=== PATIENT | female | born 1975 | race Caucasian/White ===

== ENCOUNTER 2018-06-18 16:21 | Observation (INO) | payer MEDICAID ==
--- NOTE | 2018-06-18 16:42 | ER Document Report ---
ED Medical Screen (RME) - General Chief Complaint: Abdominal Pain Stated Complaint: ABDOMINAL PAIN Time Seen by Provider: 06/18/18 16:37 Mode of Arrival: Ambulatory Information source: Patient Notes: 42-year-old female presents to ED for complaint of abdominal pain since 1130 this morning. She states she had a very good bowel movement on Tuesday that she had a small bowel movement this morning. She states she had severe pain so she took some Maida-[place]. She states that it called her friend letter who is a nurse and they told her to take the chewable Maida-[place] and a laxative so she did this. She states she has vomited x1 and she is still having severe abdominal pain. Bowel sounds are hypoactive but present abdomen is soft but distended. She states she has had a history of and and she is now in a lesbian relationship. She stated that a doctor did an exam on her previously I told her that she had a hernia in her umbilicus but she has never had it taken care of. I have greeted and performed a rapid initial assessment of this patient. A comprehensive ED assessment and evaluation of the patient, analysis of test results and completion of medical decision making process will be conducted by an additional ED providers. TRAVEL OUTSIDE OF THE [place] IN LAST 30 DAYS: No - Related Data Allergies/Adverse Reactions: pseudoephedrine [From Sudafed] Allergy (Verified 06/18/18 16:23)
[2018-06-18 17:18] LABS: ABSOLUTE EOSINOPHILS # (AUTO) 0.1 10^3/uL (0.0-0.6); ABSOLUTE LYMPHOCYTES (AUTO) 1.5 10^3/uL (0.5-4.7); ABSOLUTE MONOCYTES (AUTO) 0.5 10^3/uL (0.1-1.4); ABSOLUTE NEUT (AUTO) 7.4 10^3/uL (1.7-8.2); BASOPHILS % (AUTO) 0.2 % (0-2); EOSINOPHILS % (AUTO) 0.9 % (0-6); HEMATOCRIT 40.2 % (36.0-47.0); HEMOGLOBIN 13.9 g/dL (12.0-15.5); LYMPHOCYTES % (AUTO) 15.3 % (13-45); MEAN CORPUSCULAR HEMOGLOBIN 30.6 pg (27.0-33.4); MEAN CORPUSCULAR HGB CONC 34.5 g/dL (32.0-36.0); MEAN CORPUSCULAR VOLUME 89 fl (80-97); MONOCYTES % (AUTO) 5.6 % (3-13); PLATELET COUNT 206 10^3/uL (150-450); RED BLOOD COUNT 4.52 10^6/uL (3.72-5.28); TOTAL CELLS COUNTED % (AUTO) 100 %; WHITE BLOOD COUNT 9.6 10^3/uL (4.0-10.5)
[2018-06-18 17:38] LABS: ALANINE AMINOTRANSFERASE 20 U/L (9-52); ALBUMIN 4.4 g/dL (3.5-5.0); ALKALINE PHOSPHATASE 71 U/L (38-126); ANION GAP 12 (5-19); ASPARTATE AMINO TRANSFERASE 17 U/L (14-36); BILIRUBIN,DIRECT 0.2 mg/dL (0.0-0.4); BILIRUBIN,TOTAL 0.4 mg/dL (0.2-1.3); BLOOD UREA NITROGEN 12 mg/dL (7-20); CALCIUM 10.2 mg/dL (8.4-10.2); CARBON DIOXIDE 25 mmol/L (22-30); CHLORIDE 104 mmol/L (98-107); GLUCOSE 99 mg/dL (75-110); LIPASE 103.1 U/L (23-300); POTASSIUM 4.1 mmol/L (3.6-5.0); SODIUM 141.3 mmol/L (137-145); TOTAL PROTEIN 7.5 g/dL (6.3-8.2)
[2018-06-18 17:42] LABS: AMORPHOUS SEDIMENT,URINE TRACE /HPF; APPEARANCE,URINE CLOUDY; BILIRUBIN,URINE NEGATIVE (NEGATIVE); COLOR,URINE YELLOW; GLUCOSE, URINE NEGATIVE (NEGATIVE); KETONES,URINE NEGATIVE (NEGATIVE); LEUKOCYTE ESTERASE,URINE NEGATIVE (NEGATIVE); NITRITE,URINE NEGATIVE (NEGATIVE); PROTEIN,URINE NEGATIVE (NEGATIVE); URINE SPECIFIC GRAVITY 1.014; UROBILINOGEN,URINE NEGATIVE mg/dL (<2.0)
--- NOTE | 2018-06-18 18:15 | RADIOLOGY REPORT (SQ) ---
EXAM DESCRIPTION: ACUTE ABDOMEN SERIES COMPLETED DATE/TIME: 06/18/2018 5:54 pm REASON FOR STUDY: Abdominal pain bloating COMPARISON: None. NUMBER OF VIEWS: Three views. TECHNIQUE: Frontal chest, supine abdomen and upright/decubitus abdomen radiographic images acquired. LIMITATIONS: None. FINDINGS: CHEST: Lungs clear of infiltrates. FREE AIR: None. No abnormal gas collections. BOWEL GAS PATTERN: Nonobstructive pattern. No dilated loops or air fluid levels. Large burden of sto ol in the left and right colon. CALCIFICATIONS: No suspicious calcifications. HARDWARE: None in the abdomen. SOFT TISSUES: No gross mass or suggestion of organomegaly. BONES: S-shaped scoliosis of the thoracolumbar spine. OTHER: No other significant finding. IMPRESSION: 1. No acute abnormality of the lungs. 2. Nonobstructive pattern of bowel gas with gas and stool present to the rectum. No free air in the abdomen. Large burden of stool in the left and right colon. TECHNICAL DOCUMENTATION: JOB ID: [id number] [employer]- All Rights Reserved Reading location - IP/workstation name: [email or web address]
[2018-06-18] MEDS ORDERED: KETOROLAC TROMETHAMINE INJ/PF 30 MG/1 ML SDV IV ONE (19:22)
[2018-06-18] MEDS ORDERED: ONDANSETRON HCL INJ/PF 4 MG/2 ML SDV IV ONE (19:22)
--- NOTE | 2018-06-18 19:36 | ER Document Report ---
ED General <CR CARDENAS - Last Filed: 06/18/18 23:10> - General Mode of Arrival: Ambulatory TRAVEL OUTSIDE OF THE [place] IN LAST 30 DAYS: No <SANDHYA ALLAN - Last Filed: 06/23/18 20:23> - General Chief Complaint: Abdominal Pain Stated Complaint: ABDOMINAL PAIN Time Seen by Provider: 06/18/18 16:37 Notes: 42-year-old female presents to ED for complaint of abdominal pain since 1130 this morning. She states she had a very good bowel movement on Tuesday that she had a small bowel movement this morning. Her pain was so severe that she took some Maida-[place]. She vomited one time at home and vomited while in the waiting room. Her pain is persistent and severe that waxes to a 5 and wanes to a 3. Her bowel sounds are hypoactive but present. Has history of x2. She has a previous history of an umbilical hernia that a doctor told her was found on a previous exam. She denies any fevers, chills complains of nausea complains of vomiting complains of severe abdominal pain that is sharp and stabbing, denies shortness of breath or chest pain, denies diarrhea, denies urinary symptoms, no other complaints. (SANDHYA ALLAN) - Related Data Allergies/Adverse Reactions: pseudoephedrine [From Sudafed] Allergy (Verified 06/18/18 16:23) Past Medical History - General Information source: Patient - Social History Smoking Status: Never Smoker Frequency of alcohol use: None Drug Abuse: None Family History: None Patient has suicidal ideation: No Patient has homicidal ideation: No Renal/ Medical History: Denies: Hx Peritoneal Dialysis Past Surgical History: Reports: Hx Gynecologic Surgery - x'2 <SANDHYA ALLAN - Last Filed: 06/23/18 20:23> Review of Systems - Review of Systems Constitutional: See HPI EENT: No symptoms reported Cardiovascular: See HPI Respiratory: See HPI Gastrointestinal: See HPI Genitourinary: See HPI Female Genitourinary: No symptoms reported Musculoskeletal: No symptoms reported Skin: No symptoms reported Hematologic/Lymphatic: No symptoms reported Neurological/Psychological: No symptoms reported <SANDHYA ALLAN - Last Filed: 06/23/18 20:23> Physical Exam <SANDHYA ALLAN - Last Filed: 06/23/18 20:23> - Vital signs Vitals: Temp Pulse Resp BP Pulse Ox 97.7 F 69 18 117/69 100 06/18/18 19:00 06/18/18 19:00 06/18/18 19:00 06/18/18 19:00 06/18/18 19:00 - Notes Notes: PHYSICAL EXAMINATION: Reviewed vital signs and charting by RN GENERAL: Alert, interacts well. In acute distress. HEAD: Normocephalic, atraumatic. EYES: Pupils equal and round. Extraocular movements intact. ENT: Oral mucosa moist, tongue midline. NECK: Full range of motion. Supple. Trachea midline. LUNGS: Clear to auscultation bilaterally, no wheezes, rales, or rhonchi. No respiratory distress. HEART: Regular rate and rhythm. No murmur ABDOMEN: Unable to get a good exam due to patient's pain level. Abdomen is soft but very distended. Acute tenderness to light palpation in all montesinos. EXTREMITIES: Moves all 4 extremities spontaneously. No edema, No cyanosis. Normal distal neurovascular exam BACK: No CVAT NEUROLOGIC: Oriented and appropriate. Normal speech. PSYCH: Normal affect, normal mood. SKIN: Warm, dry, normal turgor. No rashes or lesions noted. (SANDHYA ALLAN) Course - Laboratory Result Diagrams: 06/18/18 16:42 06/18/18 16:42 <CR CARDENAS - Last Filed: 06/18/18 23:10> - Laboratory Result Diagrams: 06/19/18 05:47 06/19/18 05:47 <SANDHYA ALLAN - Last Filed: 06/23/18 20:23> - Re-evaluation Re-evalutation: Patient nauseated again, provided with Phenergan, this did help. She is able to get most of the contrast down and had a CAT scan. CAT scan showing small bowel obstruction with transition point in the mid abdomen. Patient given nebulized lidocaine, 2 mg IV Versed to help her tolerate NG tube placement. 06/18/18 23:13 Called and spoke with Dr. Palencia, general surgery, patient accepted for admission for small bowel obstruction. (CR CARDENAS) 06/18/18 19:33 Initial work-up was complete and an acute abdominal series did not show any air- fluid levels or free air present. It did show a moderate to severe stool burden with stool in the rectal vault. My initial suspicion is constipation but she is in acute distress and I am unable to get a good abdominal exam on her. Because of her history of an umbilical hernia I cannot exclude an incarceration or strangulation so my plan is to get a CT abdomen pelvis with oral and IV contrast because her BMI is 24.6. I have ordered some Zofran, IV fluids, saline lock, and fentanyl for pain control. 06/18/18 19:39 (SANDHYA ALLAN) - Vital Signs Vital signs: Temp Pulse Resp BP Pulse Ox 98.8 F 67 16 120/77 99 06/19/18 20:08 06/19/18 20:08 06/19/18 20:08 06/19/18 20:08 06/19/18 20:08 Discharge - Discharge Admitting Provider: Surgicalist Unit Admitted: Surgical Floor <CR CARDENAS - Last Filed: 06/18/18 23:10> <SANDHYA ALLAN - Last Filed: 06/23/18 20:23> - Discharge Clinical Impression: Small bowel obstruction Vomiting Qualifiers: Vomiting type: unspecified Vomiting Intractability: intractable Nausea presence: with nausea Qualified Code(s): R11.2 - Nausea with vomiting, unspecified Abdominal pain Qualifiers: Abdominal location: generalized Qualified Code(s): R10.84 - Generalized abdominal pain Condition: Stable Disposition: ADMITTED INPATIENT
[2018-06-18] MEDS ORDERED: FENTANYL CITRATE INJ/PF 100 MCG/2 ML AMPUL IV ONE (19:39)
[2018-06-18] MEDS ORDERED: NORMAL SALINE 1000 ML 1,000 ML IV ONE (19:40)
[2018-06-18] MEDS ORDERED: PROMETHAZINE HCL INJ 25 MG/1 ML VIAL IM ONE (21:09)
--- NOTE | 2018-06-18 22:30 | RADIOLOGY REPORT (SQ) ---
EXAM DESCRIPTION: CT ABDOMEN PELVIS WITH IV CONTRAST COMPLETED DATE/TME: 06/18/2018 00:00 CLINICAL HISTORY: 42 years, Female, acute abd pain h/o umbilical hernia COMPARISON: None. TECHNIQUE: Contrast enhanced CT of the abdomen/pelvis was performed. Coronal and sagittal reformations were created. Images stored on PACS. All CT scanners at this facility use dose modulation, iterative reconstruction, and/or weight based dosing when appropriate to reduce radiation dose to as low as reasonably achievable (ALARA). [facility]: Dose Right [facility]: CareDose [facility]: Dose Right [facility]: Teradose 4D [facility]: [employer] LIMITATIONS: None. FINDINGS: Limited evaluation of the lower chest reveals clear lung bases. Evaluation of the liver parenchyma reveals a hyperenhancing lesion located within the periphery of the right hepatic lobe on image 16 of series 3 measuring 0.7 x 0.6 cm in size. Liver otherwise enhances normally. The spleen, pancreas, gallbladder, and both adrenal glands appear normal. A simple cyst emanates from the lower pole of the left kidney. Both kidneys otherwise enhance symmetrically. There is no hydronephrosis or hydroureter. The urinary bladder is well distended and shows no suspicious finding. Uterus and both ovaries show no suspicious abnormality. A segment of small bowel appears dilated and fluid-filled about the lower midabdomen. A transition point is identified on image 45 of series 3 is slightly to the right of midline. Otherwise, the remainder of the small and large bowel appear normal in caliber. Vascular structures opacify with contrast normally. No suspicious lymphadenopathy is appreciated. No drainable fluid collections. There is a focal fluid density lesion located about the leftward aspect of the labia majora on image 84 of series 3 measuring 1.5 x 1.6 cm in size, corresponding to a Bartholin's gland cyst. Bone windows show no destructive osseous lesions. IMPRESSION: Findings compatible small bowel obstruction with transition point located about the lower midabdomen. Subcentimeter hyperenhancing lesion located within the periphery of the right hepatic lobe. In the absence of known primary malignancy or underlying chronic liver disease, this most likely represents a flash filling hemangioma. This could be confirmed with multiphasic CT of the abdomen. TECHNICAL DOCUMENTATION: Quality ID # 436: Final reports with documentation of one or more dose reduction techniques (e.g., Automated exposure control, adjustment of the mA and/or kV according to patient size, use of iterative reconstruction technique) copyright 2011 [employer]- All Rights Reserved
[2018-06-18] MEDS ORDERED: LIDOCAINE 1% INJ-PF (10 MG/ML) 30 ML SDV NEB ONE (22:58)
[2018-06-18] MEDS ORDERED: MIDAZOLAM 2 MG/2 ML INJ IV ONE (22:59)
--- NOTE | 2018-06-18 23:42 | PDOC H&P ---
History of Present Illness Admission Date/PCP: 06/18/18 Patient complains of: abdominal pains History of Present Illness: TERI SANCHEZ is a 42 year old female with hx of 2 CS suddenly c/o abdominal pains at 11:30 this am. Tried taking Alkaseltzer and gas x without relief. She vomited after taking rhese meds. Last good BM was 2 days ago. Had a small BM this morning. Pains are generalized and crampy. Denies fever/chills. Past Surgical History Past Surgical History: Reports: Section - x2 Social History Smoking Status: Never Smoker Family History Parental Family History Reviewed: Yes - no DM Children Family History Reviewed: No Sibling(s) Family History Reviewed.: No Medication/Allergy Allergies/Adverse Reactions: pseudoephedrine [From Sudafed] Allergy (Verified 06/18/18 16:23) Review of Systems Constitutional: PRESENT: as per HPI Eyes: PRESENT: other - no visual/hearing changes Cardiovascular: PRESENT: other - no chest pains/cough Gastrointestinal: PRESENT: abdominal pain, vomiting Genitourinary: PRESENT: other - no dysuria Physical Exam Vital Signs: Temp Pulse Resp BP Pulse Ox 97.7 F 69 18 117/69 100 06/18/18 19:00 06/18/18 19:00 06/18/18 19:00 06/18/18 19:00 06/18/18 19:00 Intake & Output 06/17/18 06/18/18 06/19/18 06:59 06:59 06:59 Intake Total 1000 Balance 1000 Weight 69 kg General appearance: PRESENT: severe distress Head exam: PRESENT: atraumatic Eye exam: PRESENT: conjunctiva pink Mouth exam: PRESENT: moist Neck exam: PRESENT: full ROM Respiratory exam: PRESENT: clear to auscultation alfredo Cardiovascular exam: PRESENT: RRR Pulses: PRESENT: normal radial pulses Vascular exam: PRESENT: normal capillary refill GI/Abdominal exam: PRESENT: soft, tenderness - diffuse. Has a very small umbilical hernia,reducible, non tender Rectal exam: PRESENT: deferred Extremities exam: PRESENT: full ROM Musculoskeletal exam: PRESENT: ambulatory Neurological exam: PRESENT: alert, oriented to person, oriented to place, oriented to time, oriented to situation Psychiatric exam: PRESENT: anxious Skin exam: PRESENT: normal color, warm Results Laboratory Results: 06/18/18 16:42 06/18/18 16:42 06/18/18 06/18/18 06/18/18 16:42 16:42 16:42 WBC 9.6 RBC 4.52 Hgb 13.9 Hct 40.2 MCV 89 MCH 30.6 MCHC 34.5 RDW 13.0 Plt Count 206 Seg Neutrophils % 78.0 Lymphocytes % 15.3 Monocytes % 5.6 Eosinophils % 0.9 Basophils % 0.2 Absolute Neutrophils 7.4 Absolute Lymphocytes 1.5 Absolute Monocytes 0.5 Absolute Eosinophils 0.1 Absolute Basophils 0.0 Sodium 141.3 Potassium 4.1 Chloride 104 Carbon Dioxide 25 Anion Gap 12 BUN 12 Creatinine 0.57 Est GFR ( Amer) > 60 Est GFR (Non-Af Amer) > 60 Glucose 99 Calcium 10.2 Total Bilirubin 0.4 AST 17 ALT 20 Alkaline Phosphatase 71 Total Protein 7.5 Albumin 4.4 Lipase 103.1 Serum HCG, Qual NEGATIVE Urine Color Urine Appearance Urine pH Ur Specific Holiday Urine Protein Urine Glucose (UA) Urine Ketones Urine Blood Urine Nitrite Ur Leukocyte Esterase Urine WBC (Auto) Urine RBC (Auto) 06/18/18 16:42 WBC RBC Hgb Hct MCV MCH MCHC RDW Plt Count Seg Neutrophils % Lymphocytes % Monocytes % Eosinophils % Basophils % Absolute Neutrophils Absolute Lymphocytes Absolute Monocytes Absolute Eosinophils Absolute Basophils Sodium Potassium Chloride Carbon Dioxide Anion Gap BUN Creatinine Est GFR ( Amer) Est GFR (Non-Af Amer) Glucose Calcium Total Bilirubin AST ALT Alkaline Phosphatase Total Protein Albumin Lipase Serum HCG, Qual Urine Color YELLOW Urine Appearance CLOUDY Urine pH 8.0 Ur Specific Holiday 1.014 Urine Protein NEGATIVE Urine Glucose (UA) NEGATIVE Urine Ketones NEGATIVE Urine Blood NEGATIVE Urine Nitrite NEGATIVE Ur Leukocyte Esterase NEGATIVE Urine WBC (Auto) 1 Urine RBC (Auto) 1 Impressions: Abdomen/Pelvis CT 06/18/18 00:00 IMPRESSION: Findings compatible small bowel obstruction with transition point located about the lower midabdomen. Subcentimeter hyperenhancing lesion located within the periphery of the right hepatic lobe. In the absence of known primary malignancy or underlying chronic liver disease, this most likely represents a flash filling hemangioma. This could be confirmed with multiphasic CT of the abdomen. TECHNICAL DOCUMENTATION: Quality ID # 436: Final reports with documentation of one or more dose reduction techniques (e.g., Automated exposure control, adjustment of the mA and/or kV according to patient size, use of iterative reconstruction technique) copyright 2011 [employer]- All Rights Reserved Acute Abdomen Series 06/18/18 16:37 IMPRESSION: 1. No acute abnormality of the lungs. 2. Nonobstructive pattern of bowel gas with gas and stool present to the rectum. No free air in the abdomen. Large burden of stool in the left and right colon. Assessment & Plan - Diagnosis (1) Abdominal pain Qualifiers: Abdominal location: generalized Qualified Code(s): R10.84 - Generalized abdominal pain Is this a current diagnosis for this admission?: Yes (2) Small bowel obstruction Is this a current diagnosis for this admission?: Yes (3) Vomiting Qualifiers: Vomiting type: unspecified Vomiting Intractability: intractable Nausea presence: with nausea Qualified Code(s): R11.2 - Nausea with vomiting, unspecified Is this a current diagnosis for this admission?: Yes - Time Time Spent: 30 to 50 Minutes - Inpatient Certification Medical Necessity: Need For IV Fluids, Need for Pain Control, Risk of Complication if Not Cared For in Hospital - Plan Summary Plan Summary: NGT Hydrate Pain mx Possible SBFT tomorrow if not opened up yet
[2018-06-18] MEDS ORDERED: HYDROMORPHONE HCL INJ/PF 2 MG/ML AMPULE IV ONE (23:56)
--- NOTE | 2018-06-19 00:25 | RADIOLOGY REPORT (SQ) ---
EXAM DESCRIPTION: XR CHEST 1 VIEW COMPLETED DATE/TME: 06/18/2018 00:00 CLINICAL HISTORY: 42 years, Female, confirmation of NG placement COMPARISON: None. NUMBER OF VIEWS: TECHNIQUE: LIMITATIONS: None. FINDINGS: The tip of the nasogastric tube is in the most proximal stomach, however, the side-port of the tube is in the distal esophagus. The lungs are clear. There is an S type thoracolumbar scoliosis. IMPRESSION: The side-port of the NG tube is in distal esophagus. The tube must be advanced at least 8 cm. copyright 2010 [employer]- All Rights Reserved
[2018-06-19] MEDS: MORPHINE SULFATE 10 MG/ML INJ IV PRN ×2 (02:02→06:54)
[2018-06-19] MEDS: NORMAL SALINE 1000 ML 1,000 ML IV PRN ×3 (02:02→17:48)
[2018-06-19] MEDS: KETOROLAC TROMETHAMINE INJ/PF 30 MG/1 ML SDV IV SCH ×3 (05:36→17:46)
[2018-06-19 06:02] LABS: HEMATOCRIT 34.9 % (36.0-47.0); HEMOGLOBIN 12.3 g/dL (12.0-15.5); MEAN CORPUSCULAR HEMOGLOBIN 31.2 pg (27.0-33.4); MEAN CORPUSCULAR HGB CONC 35.2 g/dL (32.0-36.0); MEAN CORPUSCULAR VOLUME 89 fl (80-97); PLATELET COUNT 173 10^3/uL (150-450); RED BLOOD COUNT 3.94 10^6/uL (3.72-5.28); RED CELL DISTRIBUTION WIDTH 13.3 % (11.5-14.0); WHITE BLOOD COUNT 13.6 10^3/uL (4.0-10.5)
[2018-06-19 06:24] LABS: ANION GAP 8 (5-19); BLOOD UREA NITROGEN 9 mg/dL (7-20); CALCIUM 8.5 mg/dL (8.4-10.2); CARBON DIOXIDE 25 mmol/L (22-30); CHLORIDE 106 mmol/L (98-107); GLUCOSE 102 mg/dL (75-110); POTASSIUM 4.4 mmol/L (3.6-5.0); SODIUM 139.4 mmol/L (137-145)
--- NOTE | 2018-06-19 10:00 | PDOC PROGRESS REPORT ---
Subjective Progress Note for:: 06/19/18 Subjective:: Patient states she is feeling a little bit better. She is receiving narcotics. She thinks she had some small flatus. Nasogastric tube putting out minimal. Reason For Visit: SMALL BOWEL OBSTRUCTION Physical Exam Vital Signs: Temp Pulse Resp BP Pulse Ox 98.5 F 74 16 101/64 96 06/19/18 07:36 06/19/18 07:36 06/19/18 07:36 06/19/18 07:36 06/19/18 07:36 Intake & Output 06/18/18 06/19/18 06/20/18 06:59 06:59 06:59 Intake Total 1000 1000 Balance 1000 1000 Weight 68.4 kg General appearance: PRESENT: mild distress GI/Abdominal exam: PRESENT: other - The abdomen is examined; hypoactive bowel sounds; no peritoneal signs; soft. Results Laboratory Results: 06/19/18 05:47 06/19/18 05:47 06/18/18 06/18/18 06/18/18 16:42 16:42 16:42 WBC 9.6 RBC 4.52 Hgb 13.9 Hct 40.2 MCV 89 MCH 30.6 MCHC 34.5 RDW 13.0 Plt Count 206 Seg Neutrophils % 78.0 Lymphocytes % 15.3 Monocytes % 5.6 Eosinophils % 0.9 Basophils % 0.2 Absolute Neutrophils 7.4 Absolute Lymphocytes 1.5 Absolute Monocytes 0.5 Absolute Eosinophils 0.1 Absolute Basophils 0.0 Sodium 141.3 Potassium 4.1 Chloride 104 Carbon Dioxide 25 Anion Gap 12 BUN 12 Creatinine 0.57 Est GFR ( Amer) > 60 Est GFR (Non-Af Amer) > 60 Glucose 99 Calcium 10.2 Total Bilirubin 0.4 AST 17 ALT 20 Alkaline Phosphatase 71 Total Protein 7.5 Albumin 4.4 Lipase 103.1 Serum HCG, Qual NEGATIVE Urine Color Urine Appearance Urine pH Ur Specific [place] Urine Protein Urine Glucose (UA) Urine Ketones Urine Blood Urine Nitrite Ur Leukocyte Esterase Urine WBC (Auto) Urine RBC (Auto) 06/18/18 06/19/18 06/19/18 16:42 05:47 05:47 WBC 13.6 H RBC 3.94 Hgb 12.3 Hct 34.9 L MCV 89 MCH 31.2 MCHC 35.2 RDW 13.3 Plt Count 173 Seg Neutrophils % Lymphocytes % Monocytes % Eosinophils % Basophils % Absolute Neutrophils Absolute Lymphocytes Absolute Monocytes Absolute Eosinophils Absolute Basophils Sodium 139.4 Potassium 4.4 Chloride 106 Carbon Dioxide 25 Anion Gap 8 BUN 9 Creatinine 0.65 Est GFR ( Amer) > 60 Est GFR (Non-Af Amer) > 60 Glucose 102 Calcium 8.5 Total Bilirubin AST ALT Alkaline Phosphatase Total Protein Albumin Lipase Serum HCG, Qual Urine Color YELLOW Urine Appearance CLOUDY Urine pH 8.0 Ur Specific [place] 1.014 Urine Protein NEGATIVE Urine Glucose (UA) NEGATIVE Urine Ketones NEGATIVE Urine Blood NEGATIVE Urine Nitrite NEGATIVE Ur Leukocyte Esterase NEGATIVE Urine WBC (Auto) 1 Urine RBC (Auto) 1 Impressions: Abdomen/Pelvis CT 06/18/18 00:00 IMPRESSION: Findings compatible small bowel obstruction with transition point located about the lower midabdomen. Subcentimeter hyperenhancing lesion located within the periphery of the right hepatic lobe. In the absence of known primary malignancy or underlying chronic liver disease, this most likely represents a flash filling hemangioma. This could be confirmed with multiphasic CT of the abdomen. TECHNICAL DOCUMENTATION: Quality ID # 436: Final reports with documentation of one or more dose reduction techniques (e.g., Automated exposure control, adjustment of the mA and/or kV according to patient size, use of iterative reconstruction technique) copyright 2010 [employer]- All Rights Reserved Chest X-Ray 06/18/18 00:00 IMPRESSION: The side-port of the NG tube is in distal esophagus. The tube must be advanced at least 8 cm. copyright 2010 [employer]- All Rights Reserved Acute Abdomen Series 06/18/18 16:37 IMPRESSION: 1. No acute abnormality of the lungs. 2. Nonobstructive pattern of bowel gas with gas and stool present to the rectum. No free air in the abdomen. Large burden of stool in the left and right colon. 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 Recommendations: 1. Will abort the small bowel contrast study today; discontinue nasogastric tube. 2. We will start clear liquids. 3. Discontinue narcotics.
--- NOTE | 2018-06-19 10:08 | RADIOLOGY REPORT (SQ) ---
EXAM DESCRIPTION: KUB/ABDOMEN (SINGLE VIEW) COMPLETED DATE/TIME: 06/19/2018 9:57 am REASON FOR STUDY: SBO COMPARISON: CT abdomen pelvis 06/18/2018 Three-way abdomen series 06/18/2018 NUMBER OF VIEWS: One view. TECHNIQUE: Supine radiographic image of the abdomen acquired. LIMITATIONS: None. FINDINGS: BOWEL GAS PATTERN: Normal bowel gas pattern. No dilated loops. Oral contrast given for CT exam 06/18/2018 2158 hours is now seen in the colon in a nonobstructive pattern. CALCIFICATIONS: No suspicious calcifications. SOFT TISSUES: No gross mass or suggestion of organomegaly. HARDWARE: None in the abdomen. BONES: No acute fracture. No worrisome bone lesions. OTHER: There is radiodense urine in the bladder from prior IV contrast from CT 06/18/2018 IMPRESSION: NO RADIOGRAPHIC EVIDENCE FOR ACUTE ABDOMINAL DISEASE. TECHNICAL DOCUMENTATION: JOB ID: [id number] [employer]- All Rights Reserved Reading location - IP/workstation name: [email or web address]
[2018-06-19] MEDS ORDERED: BISACODYL 10 MG SUPP.RECT PR ONE (18:00)
[2018-06-19 20:10] VITALS: BP 120/77
--- NOTE | 2018-06-22 17:39 | DISCHARGE SUMMARY E ---
Discharge Summary NAME: TERI SANCHEZ : 1975 AGE: 42Y ADMITTED: 06/18/2018 DISCHARGED: 06/19/2018 REASON FOR ADMISSION: Acute abdominal pain. SUMMARY OF HOSPITALIZATION: The patient is a 42-year-old white female who presents to the Emergency Department complaining of a 2 day history of abdominal pain, crampy, with loose stools. She took Maida-[place] without relief. She was seen in the Emergency Department where she was found to have a CT scan and pelvis, which showed a possible small bowel obstruction. Surgery was consulted. She was advised admission. The patient was kept on IV fluids, admitted to the surgical service, then kept n.p.o. She did have a nasogastric tube positioned. It drained a minimal amount. The following daily she had an abdominal film which showed CT oral contrast in her colon. The degree of small bowel dilatation was minimal. The patient was felt to be improving clinically, had her nasogastric tube removed and tolerated this well. She was started on a diet. This was advanced and tolerated well. By the afternoon of the second hospital day she was started on clear liquids, tolerating this well, and felt to be an appropriate candidate for discharge home. FINAL DIAGNOSIS: Probable gastroenteritis, resolved; no evidence of bowel obstruction. DISPOSITION: 1. The patient will be discharged home in the care of her family. 2. Follow up at [facility], the [facility] on a p.r.n. basis. DICTATING PHYSICIAN: CONSTANZA ANAND M.D. [id number] PHY#: [id number] ID: [id number] JOB#: [id number] ACCT: [id number] cc:Sanya MUNOZ PA >
== END 2018-06-19 21:11 | disposition home or self-care (01) ==
LOC: ER 16:21 → EDBD 16:21 → EH 23:32 → INTOOBSV 23:32 → 5 06-19 00:50
PROVIDERS: ATTEND Surgery
DX: R10.84 Generalized abdominal pain (principal); R11.2 Nausea with vomiting, unspecified; K42.9 Umbilical hernia without obstruction or gangrene; Z98.890 Other specified postprocedural states
CPT/HCPCS: 94640; 99285; 96372; 96361; 96374; 96375; 36415 ×2; 83690; 84703; 85025; 85027; 80048; 80053; 81001; 74022; 71045; 74018; 74177; G0378; J2250; J3010; J3490; J1885; J2270; J1170; J2550; J2405; J7030 ×2